=== PATIENT | male | born 1960 | race Caucasian/White ===

== ENCOUNTER 2021-12-19 15:40 | Inpatient (IN) | payer BC ==
[2021-12-19 16:06] LABS: #Basophils 0.1 thou/uL (0.0-0.2); #Eosinphils 0.2 thou/uL (0.0-0.7); #Lymphocytes 1.9 thou/uL (1.20-3.40); #Monocytes 0.8 thou/uL (0.11-0.59); #Neutrophils 7.5 thou/uL (1.40-6.50); %Basophils 0.5 % (0.0-1.0); %Eosinophils 1.9 % (0.0-10.0); %Lymphocytes 18.2 % (21.0-51.0); %Neutrophils 71.4 % (42.0-75.0); Hemoglobin 13.6 g/dL (14.0-18.0); Mean Corpuscular HGB CONC 32.8 g/dL (32.0-36.0); Mean Corpuscular Hemoglobin 31.4 pg (27.0-31.0); Mean Corpuscular Volume 95.6 fL (78.0-98.0); Mean Platelet Volume 7.8 fL (7.4-10.4); Platelet Count 262 thou/uL (130-400); RBC Distribution Width 11.5 % (11.5-14.5); Red Blood Cell (RBC) Count 4.33 mill/uL (4.70-6.10); White Blood Cell (WBC) Count 10.5 thou/uL (4.8-10.8)
[2021-12-19] MEDS ORDERED: Diltiazem HCl 0 ML ONE (16:12)
[2021-12-19 16:28] LABS: ALT (SGPT) 12 U/L (8-55); AST (SGOT) 14 U/L (5-34); Albumin 4.2 g/dL (3.4-4.8); Alkaline Phosphatase 49 U/L (40-110); Anion Gap 15 mmol/L (10-20); BUN (Urea Nitrogen) 14 mg/dL (8.4-25.7); Bilirubin, Total 0.4 mg/dL (0.2-1.2); Calc. Creatinine Clearance 0 mL/min (70-130); Carbon Dioxide 22 mmol/L (23-31); Chloride 108 mmol/L (98-107); Estimated GFR 73; Globulin 3.1 g/dL (2.4-3.5); Glucose 100 mg/dL (80-115); Potassium 3.5 mmol/L (3.5-5.1); Protein, Total 7.3 g/dL (5.8-8.1); Sodium 141 mmol/L (136-145)
[2021-12-19 16:50] LABS: PTT 36.3 sec (22.9-36.1); Prothrombin Time 13.6 sec (12.0-14.7)
[2021-12-19] MEDS ORDERED: Enoxaparin Sodium 60 MG/0.6 ML SYRINGE ONE (17:17)
[2021-12-19] MEDS ORDERED: Enoxaparin Sodium 100 MG/ML SYRINGE ONE ×2 (17:17→17:20)
[2021-12-19] MEDS ORDERED: Enoxaparin Sodium 40 MG/0.4 ML SYRINGE ONE (17:20)
[2021-12-19 17:28] LABS: Magnesium 1.8 mg/dL (1.6-2.6)
[2021-12-19] MEDS ORDERED: Ondansetron PF 4 MG/2 ML Vial IVP PRN (17:47)
[2021-12-19] MEDS ORDERED: Ondansetron ODT 4 MG TAB PO PRN (17:47)
[2021-12-19] MEDS ORDERED: Diltiazem 125 MG in Sodium Chloride 0.9% 100 ML IVPB SCH ×2 (18:00→20:07)
[2021-12-19 19:43] LABS: Troponin I Less than 0.010 ng/mL (< 0.028)
[2021-12-19 19:57] VITALS: BMI 45.0
[2021-12-19 22:25] LABS: Troponin I Less than 0.010 ng/mL (< 0.028)
[2021-12-20 05:31] LABS: #Basophils 0.1 thou/uL (0.0-0.2); #Eosinphils 0.1 thou/uL (0.0-0.7); #Lymphocytes 1.6 thou/uL (1.20-3.40); #Monocytes 0.6 thou/uL (0.11-0.59); #Neutrophils 5.9 thou/uL (1.40-6.50); %Basophils 0.7 % (0.0-1.0); %Eosinophils 1.7 % (0.0-10.0); %Lymphocytes 19.4 % (21.0-51.0); %Monocytes 7.5 % (0.0-10.0); %Neutrophils 70.7 % (42.0-75.0); Hemoglobin 12.7 g/dL (14.0-18.0); Mean Corpuscular HGB CONC 32.8 g/dL (32.0-36.0); Mean Corpuscular Hemoglobin 31.6 pg (27.0-31.0); Mean Corpuscular Volume 96.2 fL (78.0-98.0); Mean Platelet Volume 8.1 fL (7.4-10.4); Platelet Count 238 thou/uL (130-400); RBC Distribution Width 11.6 % (11.5-14.5); Red Blood Cell (RBC) Count 4.03 mill/uL (4.70-6.10); White Blood Cell (WBC) Count 8.4 thou/uL (4.8-10.8)
[2021-12-20 05:46] LABS: Anion Gap 13 mmol/L (10-20); BUN (Urea Nitrogen) 11 mg/dL (8.4-25.7); Calc. Creatinine Clearance 155 mL/min (70-130); Calcium 9.5 mg/dL (7.8-10.44); Carbon Dioxide 22 mmol/L (23-31); Chloride 108 mmol/L (98-107); Estimated GFR 87; Glucose 109 mg/dL (80-115); Potassium 3.3 mmol/L (3.5-5.1); Sodium 140 mmol/L (136-145)
[2021-12-20] MEDS ORDERED: Enoxaparin Sodium 40 MG/0.4 ML SYRINGE SC SCH (09:00)
[2021-12-20] MEDS: hydrALAZINE 20 MG/ML VIAL SLOW IVP PRN (16:55)
[2021-12-20] MEDS: FLUoxetine HCl 20 MG CAP PO SCH (20:11)
[2021-12-20] MEDS: Apixaban 5 MG TAB PO SCH (20:11)
[2021-12-20] MEDS: Acetaminophen 325 MG TAB PO PRN (21:47)
[2021-12-21] MEDS: hydrALAZINE 20 MG/ML VIAL SLOW IVP PRN ×2 (02:59→11:10)
[2021-12-21 04:52] LABS: #Eosinphils 0.1 thou/uL (0.0-0.7); #Lymphocytes 1.3 thou/uL (1.20-3.40); #Monocytes 0.7 thou/uL (0.11-0.59); #Neutrophils 7.6 thou/uL (1.40-6.50); %Basophils 0.2 % (0.0-1.0); %Eosinophils 0.8 % (0.0-10.0); %Lymphocytes 13.7 % (21.0-51.0); %Monocytes 6.9 % (0.0-10.0); %Neutrophils 78.3 % (42.0-75.0); Mean Corpuscular HGB CONC 33.1 g/dL (32.0-36.0); Mean Corpuscular Hemoglobin 31.7 pg (27.0-31.0); Mean Platelet Volume 7.8 fL (7.4-10.4); Platelet Count 253 thou/uL (130-400); RBC Distribution Width 11.4 % (11.5-14.5); Red Blood Cell (RBC) Count 4.09 mill/uL (4.70-6.10); White Blood Cell (WBC) Count 9.7 thou/uL (4.8-10.8)
[2021-12-21 05:20] LABS: Anion Gap 17 mmol/L (10-20); BUN (Urea Nitrogen) 10 mg/dL (8.4-25.7); Calc. Creatinine Clearance 169 mL/min (70-130); Calcium 9.7 mg/dL (7.8-10.44); Carbon Dioxide 19 mmol/L (23-31); Chloride 106 mmol/L (98-107); Estimated GFR 96; Glucose 120 mg/dL (80-115); Potassium 3.7 mmol/L (3.5-5.1); Sodium 138 mmol/L (136-145)
[2021-12-21] MEDS: FLUoxetine HCl 20 MG CAP PO SCH ×2 (11:09→20:50)
[2021-12-21] MEDS: Apixaban 5 MG TAB PO SCH ×2 (11:10→20:50)
[2021-12-21] MEDS ORDERED: PROPOFOL 200 MG/20 ML VIAL ONE (12:21)
[2021-12-21] MEDS ORDERED: Losartan 25 MG TAB PO SCH (17:00)
[2021-12-21] MEDS ORDERED: hydrOXYzine 25 MG TAB PO SCH (20:25)
[2021-12-21] MEDS ORDERED: Melatonin 3 MG TAB PO PRN (20:26)
[2021-12-21] MEDS: Acetaminophen 325 MG TAB PO PRN (20:50)
[2021-12-22 04:38] LABS: #Eosinphils 0.2 thou/uL (0.0-0.7); #Lymphocytes 1.2 thou/uL (1.20-3.40); #Monocytes 0.9 thou/uL (0.11-0.59); #Neutrophils 7.6 thou/uL (1.40-6.50); %Basophils 0.4 % (0.0-1.0); %Eosinophils 1.8 % (0.0-10.0); %Lymphocytes 12.4 % (21.0-51.0); %Neutrophils 76.5 % (42.0-75.0); Hemoglobin 13.6 g/dL (14.0-18.0); Mean Corpuscular HGB CONC 33.6 g/dL (32.0-36.0); Mean Corpuscular Hemoglobin 31.9 pg (27.0-31.0); Mean Corpuscular Volume 95.1 fL (78.0-98.0); Mean Platelet Volume 7.8 fL (7.4-10.4); Platelet Count 276 thou/uL (130-400); RBC Distribution Width 11.7 % (11.5-14.5); Red Blood Cell (RBC) Count 4.27 mill/uL (4.70-6.10); White Blood Cell (WBC) Count 9.9 thou/uL (4.8-10.8)
[2021-12-22 04:58] LABS: Anion Gap 18 mmol/L (10-20); BUN (Urea Nitrogen) 10 mg/dL (8.4-25.7); Calc. Creatinine Clearance 166 mL/min (70-130); Calcium 10.2 mg/dL (7.8-10.44); Carbon Dioxide 18 mmol/L (23-31); Chloride 106 mmol/L (98-107); Estimated GFR 93; Glucose 124 mg/dL (80-115); Potassium 3.2 mmol/L (3.5-5.1); Sodium 139 mmol/L (136-145)
[2021-12-22] MEDS ORDERED: Losartan 25 MG TAB PO SCH (09:00)
[2021-12-22] MEDS: Apixaban 5 MG TAB PO SCH ×2 (10:13→21:14)
[2021-12-22] MEDS: AZILSARTAN 80 MG PO SCH (10:14)
[2021-12-22] MEDS: FLUoxetine HCl 20 MG CAP PO SCH ×2 (10:15→21:14)
[2021-12-22] MEDS ORDERED: Potassium Chloride 20 MEQ TAB PO SCH (10:15)
[2021-12-22] MEDS: hydrALAZINE 20 MG/ML VIAL SLOW IVP PRN (18:08)
[2021-12-22] MEDS: Acetaminophen 325 MG TAB PO PRN (18:10)
[2021-12-22] MEDS ORDERED: hydrOXYzine 25 MG TAB PO SCH (22:00)
[2021-12-23 04:54] LABS: #Eosinphils 0.3 thou/uL (0.0-0.7); #Lymphocytes 2.2 thou/uL (1.20-3.40); #Monocytes 1.3 thou/uL (0.11-0.59); #Neutrophils 8.1 thou/uL (1.40-6.50); %Basophils 0.4 % (0.0-1.0); %Eosinophils 2.2 % (0.0-10.0); %Lymphocytes 18.2 % (21.0-51.0); %Monocytes 11.1 % (0.0-10.0); %Neutrophils 68.1 % (42.0-75.0); Hemoglobin 14.1 g/dL (14.0-18.0); Mean Corpuscular HGB CONC 33.5 g/dL (32.0-36.0); Mean Corpuscular Hemoglobin 32.4 pg (27.0-31.0); Mean Corpuscular Volume 96.5 fL (78.0-98.0); Mean Platelet Volume 7.9 fL (7.4-10.4); Platelet Count 309 thou/uL (130-400); RBC Distribution Width 11.6 % (11.5-14.5); Red Blood Cell (RBC) Count 4.37 mill/uL (4.70-6.10)
[2021-12-23 05:11] LABS: Anion Gap 14 mmol/L (10-20); BUN (Urea Nitrogen) 10 mg/dL (8.4-25.7); Calc. Creatinine Clearance 162 mL/min (70-130); Calcium 10.3 mg/dL (7.8-10.44); Carbon Dioxide 20 mmol/L (23-31); Chloride 107 mmol/L (98-107); Estimated GFR 91; Glucose 130 mg/dL (80-115); Potassium 3.4 mmol/L (3.5-5.1); Sodium 138 mmol/L (136-145)
[2021-12-23] MEDS: Amlodipine 5 MG TAB PO SCH (08:56)
[2021-12-23] MEDS: AZILSARTAN 80 MG PO SCH (08:57)
[2021-12-23] MEDS: FLUoxetine HCl 20 MG CAP PO SCH ×2 (08:57→20:58)
[2021-12-23] MEDS: Apixaban 5 MG TAB PO SCH ×2 (08:57→20:58)
[2021-12-23] MEDS ORDERED: AZILSARTAN 80 MG PO SCH (09:00)
[2021-12-23] MEDS ORDERED: Losartan 25 MG TAB PO SCH (14:45)
[2021-12-23] MEDS ORDERED: Labetalol HCl 100 MG/20 ML VIAL SLOW IVP PRN (16:00)
[2021-12-23] MEDS: Acetaminophen 325 MG TAB PO PRN (23:00)
[2021-12-24 05:01] LABS: #Basophils 0.1 thou/uL (0.0-0.2); #Eosinphils 0.2 thou/uL (0.0-0.7); #Lymphocytes 1.6 thou/uL (1.20-3.40); #Monocytes 1.3 thou/uL (0.11-0.59); #Neutrophils 7.7 thou/uL (1.40-6.50); %Basophils 0.5 % (0.0-1.0); %Lymphocytes 14.7 % (21.0-51.0); %Monocytes 12.2 % (0.0-10.0); %Neutrophils 70.6 % (42.0-75.0); Hemoglobin 12.9 g/dL (14.0-18.0); Mean Corpuscular HGB CONC 32.6 g/dL (32.0-36.0); Mean Corpuscular Hemoglobin 31.1 pg (27.0-31.0); Mean Corpuscular Volume 95.5 fL (78.0-98.0); Mean Platelet Volume 7.8 fL (7.4-10.4); Platelet Count 267 thou/uL (130-400); RBC Distribution Width 11.7 % (11.5-14.5); Red Blood Cell (RBC) Count 4.16 mill/uL (4.70-6.10); White Blood Cell (WBC) Count 10.9 thou/uL (4.8-10.8)
[2021-12-24 05:22] LABS: Anion Gap 13 mmol/L (10-20); BUN (Urea Nitrogen) 10 mg/dL (8.4-25.7); Calc. Creatinine Clearance 171 mL/min (70-130); Calcium 9.7 mg/dL (7.8-10.44); Carbon Dioxide 22 mmol/L (23-31); Chloride 108 mmol/L (98-107); Estimated GFR 96; Glucose 128 mg/dL (80-115); Potassium 3.2 mmol/L (3.5-5.1); Sodium 140 mmol/L (136-145)
[2021-12-24] MEDS ORDERED: Amiodarone 450 MG in Dextrose 5% in Water 250 ML IVPB SCH (08:30)
[2021-12-24] MEDS ORDERED: Amiodarone 150 MG in Dextrose 5% in Water 100 ML IVPB SCH (09:00)
[2021-12-24] MEDS ORDERED: Losartan 25 MG TAB PO SCH (09:00)
[2021-12-24] MEDS: FLUoxetine HCl 20 MG CAP PO SCH ×2 (09:22→20:00)
[2021-12-24] MEDS: Amlodipine 5 MG TAB PO SCH (09:22)
[2021-12-24] MEDS: Apixaban 5 MG TAB PO SCH ×2 (09:23→20:00)
[2021-12-24] MEDS: AZILSARTAN 80 MG PO SCH (09:27)
[2021-12-24 10:37] LABS: ALT (SGPT) 10 U/L (8-55); AST (SGOT) 11 U/L (5-34); Albumin 3.8 g/dL (3.4-4.8); Alkaline Phosphatase 55 U/L (40-110); Bilirubin, Direct 0.5 mg/dL (0.1-0.3); Magnesium 1.6 mg/dL (1.6-2.6); Protein, Total 6.7 g/dL (5.8-8.1)
[2021-12-24] MEDS ORDERED: Potassium Chloride 20 MEQ TAB PO SCH (14:45)
[2021-12-25] MEDS: Acetaminophen 325 MG TAB PO PRN (01:42)
[2021-12-25] MEDS: FLUoxetine HCl 20 MG CAP PO SCH ×2 (08:46→20:35)
[2021-12-25] MEDS: Hydrochlorothiazide 25 MG TAB PO SCH (08:46)
[2021-12-25] MEDS: Metoprolol Tartrate 25 MG TAB PO SCH ×2 (08:47→20:35)
[2021-12-25] MEDS: Amlodipine 5 MG TAB PO SCH (08:47)
[2021-12-25] MEDS: Apixaban 5 MG TAB PO SCH ×2 (08:47→20:35)
[2021-12-25] MEDS: AZILSARTAN 80 MG PO SCH (08:53)
[2021-12-25 09:55] LABS: Anion Gap 14 mmol/L (10-20); BUN (Urea Nitrogen) 9 mg/dL (8.4-25.7); Calc. Creatinine Clearance 186 mL/min (70-130); Calcium 10.1 mg/dL (7.8-10.44); Carbon Dioxide 21 mmol/L (23-31); Chloride 105 mmol/L (98-107); Estimated GFR 99; Glucose 132 mg/dL (80-115); Potassium 3.1 mmol/L (3.5-5.1); Sodium 137 mmol/L (136-145)
[2021-12-25] MEDS ORDERED: Amiodarone 200 MG TAB PO SCH ×2 (15:00)
[2021-12-25] MEDS ORDERED: Potassium Chloride 20 MEQ TAB PO SCH (18:00)
[2021-12-26 03:24] VITALS: TEMP 97.5
[2021-12-26 05:25] LABS: Anion Gap 15 mmol/L (10-20); BUN (Urea Nitrogen) 13 mg/dL (8.4-25.7); Calc. Creatinine Clearance 175 mL/min (70-130); Calcium 9.8 mg/dL (7.8-10.44); Carbon Dioxide 20 mmol/L (23-31); Chloride 104 mmol/L (98-107); Estimated GFR 97; Glucose 133 mg/dL (80-115); Potassium 3.3 mmol/L (3.5-5.1); Sodium 136 mmol/L (136-145)
[2021-12-26] MEDS: Metoprolol Tartrate 25 MG TAB PO SCH (07:43)
[2021-12-26] MEDS: Apixaban 5 MG TAB PO SCH (07:43)
[2021-12-26] MEDS: FLUoxetine HCl 20 MG CAP PO SCH (07:43)
[2021-12-26] MEDS: Hydrochlorothiazide 25 MG TAB PO SCH (07:43)
[2021-12-26] MEDS: AZILSARTAN 80 MG PO SCH (07:47)
[2021-12-26] MEDS ORDERED: Enoxaparin Sodium 40 MG/0.4 ML SYRINGE SC SCH (09:00)
[2021-12-26] MEDS ORDERED: Potassium Chloride 20 MEQ TAB PO SCH (11:00)
[2021-12-26 12:36] VITALS: BP 160/99
== END 2021-12-26 13:39 | disposition home or self-care (01) | DRG 308 ==
LOC: ERS 15:40 → 2SW 17:49 → OBSVTOIN 17:49
PROVIDERS: ADMIT Internal Medicine; ATTEND Internal Medicine
PROC: B24BZZ4 Ultrasonography of Heart with Aorta, Transesophageal (ICD-10-PCS; principal; 2021-12-21)
PROC: 5A2204Z Restoration of Cardiac Rhythm, Single (ICD-10-PCS; 2021-12-21)
DX: I48.19 Other persistent atrial fibrillation (principal); J96.01 Acute respiratory failure with hypoxia; E66.2 Morbid (severe) obesity with alveolar hypoventilation; Z68.42 Body mass index [BMI] 45.0-49.9, adult; Z20.822 Contact with and (suspected) exposure to COVID-19; Z23 Encounter for immunization; E87.6 Hypokalemia; F31.9 Bipolar disorder, unspecified; I11.9 Hypertensive heart disease without heart failure; Z79.899 Other long term (current) drug therapy; Z98.52 Vasectomy status; Z90.09 Acquired absence of other part of head and neck; Z86.16 Personal history of COVID-19
CPT/HCPCS: 36415; 71045; 80048; 80053; 83605; 83735; 83880; 84443; 84484; 85025; 85610; 85730; 90471; 90732; 92960; 93005; 93010; 93306; 93312; 96372; 96374; G0009; J0282; J0360; J1650; J2704; J7070; U0003; U0005

== ENCOUNTER 2022-04-12 08:32 | Outpatient (CLI) | payer BC ==
[2022-04-12 10:17] LABS: Hemoglobin 14.1 g/dL (13.5-17.5); Mean Corpuscular HGB CONC 35.1 g/dL (32.0-36.0); Mean Corpuscular Hemoglobin 30.9 pg (27.0-33.0); Mean Corpuscular Volume 88.2 fl (81.2-95.1); Platelet Count 291 10x3/uL (150-450); RBC Distribution Width 14.8 % (11.5-14.5); Red Blood Cell (RBC) Count 4.56 10x6/uL (4.32-5.72); White Blood Cell (WBC) Count 9.1 10x3/uL (3.5-10.5)
[2022-04-12 10:37] LABS: PTT 31.2 sec (22.0-33.0); Prothrombin Time 10.9 sec (9.5-12.1)
[2022-04-12 10:40] LABS: ALT (SGPT) 12 U/L (8-55); AST (SGOT) 13 U/L (5-34); Albumin 4.1 g/dL (3.4-4.8); Alkaline Phosphatase 57 U/L (40-110); Anion Gap 14 mmol/L (10-20); BUN (Urea Nitrogen) 21 mg/dL (8.4-25.7); Bilirubin, Direct 0.2 mg/dL (0.1-0.3); Bilirubin, Total 0.4 mg/dL (0.2-1.2); Calc. Creatinine Clearance 0 mL/min (70-130); Calcium 9.8 mg/dL (7.8-10.44); Carbon Dioxide 24 mmol/L (23-31); Chloride 104 mmol/L (98-107); Estimated GFR 76; Glucose 100 mg/dL (80-115); Potassium 4.3 mmol/L (3.5-5.1); Protein, Total 6.7 g/dL (5.8-8.1); Sodium 138 mmol/L (136-145)
== END 2022-04-12 08:33 | disposition home or self-care (01) ==
LOC: LABBT 08:32
PROVIDERS: ATTEND Internal Medicine Cardiovascular Disease
DX: Z01.818 Encounter for other preprocedural examination (principal); Z51.81 Encounter for therapeutic drug level monitoring; I48.0 Paroxysmal atrial fibrillation; I51.9 Heart disease, unspecified; K76.9 Liver disease, unspecified; Z79.01 Long term (current) use of anticoagulants
CPT/HCPCS: 71046; 80048; 80076; 85027; 85610; 85730; 93005; 93010

== ENCOUNTER 2022-04-15 08:19 | Day surgery (SDC) | payer BC ==
[2022-04-12 15:56] VITALS: BMI 41.5
[2022-04-15] MEDS ORDERED: Heparin 25,000 units/D5W 500 ML ONE (09:55)
[2022-04-15] MEDS ORDERED: Heparin 10,000 UNITS/ 10 ML VIAL ONE ×2 (09:55→16:22)
[2022-04-15] MEDS ORDERED: Protamine Sulfate 50 MG/5 ML VIAL ONE (09:55)
[2022-04-15] MEDS ORDERED: Isoproterenol 0.2 MG/1 ML AMP ONE (09:56)
[2022-04-15] MEDS ORDERED: PROPOFOL 200 MG/20 ML VIAL ONE (13:21)
[2022-04-15] MEDS ORDERED: Rocuronium Bromide 10 MG/ML (10ML VIAL) ONE (13:21)
[2022-04-15] MEDS ORDERED: Metoprolol Tartrate 5 MG/5 ML VIAL ONE (13:21)
[2022-04-15] MEDS ORDERED: Ondansetron PF 4 MG/2 ML Vial ONE (13:21)
[2022-04-15] MEDS ORDERED: Phenylephrine 10 MG/ML VIAL ONE (13:21)
[2022-04-15] MEDS ORDERED: FENTANYL 50 MCG/ML 1 ML VIAL ONE ×3 (13:22→16:29)
[2022-04-15] MEDS ORDERED: PHENYLEPHRINE-NS 100 MCG/ML 10 ML SYRINGE ONE (15:13)
[2022-04-15] MEDS ORDERED: SUGAMMADEX SODIUM 200 MG/2 ML VIAL ONE (16:29)
[2022-04-15] MEDS ORDERED: Furosemide 40 MG/4 ML VIAL ONE (16:29)
[2022-04-15] MEDS ORDERED: Ondansetron HCl/PF 4 MG/2 ML Vial IVP PRN (16:54)
[2022-04-15] MEDS ORDERED: Promethazine HCl 25 MG/ML VIAL IVPB PRN (16:54)
[2022-04-15] MEDS ORDERED: Promethazine HCl 25 MG/ML VIAL IM PRN (16:54)
[2022-04-15] MEDS ORDERED: Sucralfate 1 GM TAB ONE (17:47)
[2022-04-15] MEDS ORDERED: Sucralfate 1 GM TAB PO SCH ×2 (18:00)
== END 2022-04-15 21:10 | disposition home or self-care (01) ==
LOC: SDC 08:19
PROVIDERS: ATTEND Internal Medicine Cardiovascular Disease
PROC: B244ZZ3 Ultrasonography of Right Heart, Intravascular (ICD-10-PCS; principal; 2022-04-15)
PROC: 4A023FZ Measurement of Cardiac Rhythm, Percutaneous Approach (ICD-10-PCS; principal; 2022-04-15)
PROC: 02583ZZ Destruction of Conduction Mechanism, Percutaneous Approach (ICD-10-PCS; principal; 2022-04-15)
PROC: 02K83ZZ Map Conduction Mechanism, Percutaneous Approach (ICD-10-PCS; principal; 2022-04-15)
PROC: 4A0234Z Measurement of Cardiac Electrical Activity, Percutaneous Approach (ICD-10-PCS; principal; 2022-04-15)
DX: I48.0 Paroxysmal atrial fibrillation (principal); I48.4 Atypical atrial flutter; I11.9 Hypertensive heart disease without heart failure; G47.30 Sleep apnea, unspecified; E66.9 Obesity, unspecified; Z68.41 Body mass index [BMI] 40.0-44.9, adult; Z86.16 Personal history of COVID-19; Z79.01 Long term (current) use of anticoagulants; Z79.899 Other long term (current) drug therapy
CPT/HCPCS: 85347; 93005; 93623; 93656; C1732; C1760; C1769; C1894; J1644; J1940; J2370; J2405; J2704; J2720; J3010

== ENCOUNTER 2022-05-14 19:00 | Outpatient (CLI) | payer BC | END 2022-05-14 19:01 | disposition home or self-care (01) | LOC: SLEEPLAB 19:00 | PROVIDERS: ATTEND Family Medicine | DX: G47.33 Obstructive sleep apnea (adult) (pediatric) (principal); R53.83 Other fatigue; J44.9 Chronic obstructive pulmonary disease, unspecified; I51.89 Other ill-defined heart diseases; G47.10 Hypersomnia, unspecified; E66.9 Obesity, unspecified; Z68.41 Body mass index [BMI] 40.0-44.9, adult | CPT/HCPCS: 95811 ==

== ENCOUNTER → 2022-09-13 | Day surgery (SDC) | payer BC ==
[2022-09-12 08:03] VITALS: BMI 40.1
[2022-09-12 08:34] LABS: Hemoglobin 13.3 g/dL (13.5-17.5); Mean Corpuscular HGB CONC 34.1 g/dL (32.0-36.0); Mean Corpuscular Hemoglobin 31.1 pg (27.0-33.0); Mean Corpuscular Volume 91.1 fl (81.2-95.1); Mean Platelet Volume 10.1 fl (7.4-10.4); Platelet Count 302 10x3/uL (150-450); RBC Distribution Width 12.5 % (11.5-14.5); Red Blood Cell (RBC) Count 4.28 10x6/uL (4.32-5.72); White Blood Cell (WBC) Count 9.8 10x3/uL (3.5-10.5)
[2022-09-12 08:59] LABS: Anion Gap 16 mmol/L (10-20); BUN (Urea Nitrogen) 27 mg/dL (8.4-25.7); Calc. Creatinine Clearance 106 mL/min (70-130); Calcium 9.9 mg/dL (7.8-10.44); Carbon Dioxide 22 mmol/L (23-31); Chloride 103 mmol/L (98-107); Estimated GFR 64; Glucose 114 mg/dL (80-115); Potassium 4.1 mmol/L (3.5-5.1); Sodium 137 mmol/L (136-145)
[2022-09-12 09:24] LABS: PTT 32.2 sec (22.0-33.0); Prothrombin Time 10.6 sec (9.5-12.1)
[~2022-09-13] MED LIST: Lidocaine 1% PF 5 ML VIAL ONE; PROPOFOL 200 MG/20 ML VIAL ONE
== END | disposition home or self-care (01) ==
LOC: SDC 10:20
PROVIDERS: ATTEND Internal Medicine Cardiovascular Disease
PROC: 5A2204Z Restoration of Cardiac Rhythm, Single (ICD-10-PCS; principal; 2022-09-13)
DX: I48.19 Other persistent atrial fibrillation (principal); I48.4 Atypical atrial flutter; I10 Essential (primary) hypertension; G47.30 Sleep apnea, unspecified; I45.10 Unspecified right bundle-branch block; Z86.16 Personal history of COVID-19; Z79.01 Long term (current) use of anticoagulants; Z79.899 Other long term (current) drug therapy
CPT/HCPCS: 80048; 85027; 85610; 85730; 92960; 93005; 93010; J2704

== ENCOUNTER 2023-10-22 06:40 | Day surgery (SDC) | payer BC ==
[2023-10-20 11:54] VITALS: BMI 40.1
[2023-10-20 12:51] LABS: Hemoglobin 15.7 g/dL (13.5-17.5); Mean Corpuscular HGB CONC 35.7 g/dL (32.0-36.0); Mean Corpuscular Hemoglobin 32.9 pg (27.0-33.0); Mean Corpuscular Volume 92.2 fL (81.2-95.1); Mean Platelet Volume 10.4 fL (7.4-10.4); Platelet Count 256 10x3/uL (150-450); Red Blood Cell (RBC) Count 4.77 10x6/uL (4.32-5.72); White Blood Cell (WBC) Count 9.8 10x3/uL (3.5-10.5)
[2023-10-20 13:01] LABS: PTT 29.3 sec (22.0-33.0); Prothrombin Time 11.2 sec (9.5-12.1)
[2023-10-20 13:08] LABS: Anion Gap 14 mmol/L (10-20); BUN (Urea Nitrogen) 17 mg/dL (8.4-25.7); Calc. Creatinine Clearance 122 mL/min (70-130); Carbon Dioxide 24 mmol/L (23-31); Chloride 103 mmol/L (98-107); Estimated GFR 76; Glucose 176 mg/dL (80-115); Potassium 3.9 mmol/L (3.5-5.1); Sodium 137 mmol/L (136-145)
[2023-10-22] MEDS ORDERED: Isoproterenol 0.2 MG/1 ML AMP ONE (06:50)
[2023-10-22] MEDS ORDERED: Heparin 10,000 UNITS/ 10 ML VIAL ONE (06:50)
[2023-10-22] MEDS ORDERED: Heparin 25,000 units/D5W 500 ML ONE (06:50)
[2023-10-22] MEDS ORDERED: Protamine Sulfate 50 MG/5 ML VIAL ONE (06:50)
[2023-10-22] MEDS ORDERED: PROPOFOL 20 ML ONE (08:40)
[2023-10-22] MEDS ORDERED: SUCCINYLCHOLINE/SOD CL,ISO/PF 200 MG/10 ML SYRINGE FS ONE (08:40)
[2023-10-22] MEDS ORDERED: fentaNYL 50 mcg/mL 1 mL Vial ONE ×2 (08:40→11:36)
[2023-10-22] MEDS ORDERED: Midazolam HCl 2 mg/2 ml Vial ONE (08:40)
[2023-10-22] MEDS ORDERED: Lidocaine 1% PF 5 ML VIAL ONE (08:41)
[2023-10-22] MEDS ORDERED: Esmolol 100 MG/10 ML VIAL ONE (08:46)
[2023-10-22] MEDS ORDERED: Propofol 1,000 MG/100 ML VIAL IV ONE (08:53)
[2023-10-22] MEDS ORDERED: PHENYLEPHRINE-NS 100 MCG/ML 10 ML SYRINGE ONE ×2 (09:05→12:55)
[2023-10-22] MEDS ORDERED: Dexamethasone 20 MG/5 ML VIAL ONE (09:06)
[2023-10-22] MEDS ORDERED: Ondansetron PF 4 MG/2 ML Vial ONE (09:06)
[2023-10-22] MEDS ORDERED: Phenylephrine 10 MG/ML VIAL ONE (12:55)
[2023-10-22] MEDS ORDERED: Sodium Chloride 0.9% 250 ML 250 ML ONE (12:55)
== END 2023-10-22 16:20 | disposition home or self-care (01) ==
LOC: SDC 06:40
PROVIDERS: ATTEND Internal Medicine Cardiovascular Disease
PROC: 4A027FZ Measurement of Cardiac Rhythm, Via Natural or Artificial Opening (ICD-10-PCS; principal; 2023-10-22)
PROC: 02583ZZ Destruction of Conduction Mechanism, Percutaneous Approach (ICD-10-PCS; principal; 2023-10-22)
PROC: 4A0274Z Measurement of Cardiac Electrical Activity, Via Natural or Artificial Opening (ICD-10-PCS; principal; 2023-10-22)
DX: I48.0 Paroxysmal atrial fibrillation (principal); I48.19 Other persistent atrial fibrillation; E66.01 Morbid (severe) obesity due to excess calories; I10 Essential (primary) hypertension; Z98.890 Other specified postprocedural states; Z79.01 Long term (current) use of anticoagulants; Z68.41 Body mass index [BMI] 40.0-44.9, adult
CPT/HCPCS: 80048; 85027; 85347; 85610; 85730; 93005; 93622; 93623; 93655; 93656; C1732; C1759; C1760; C1884; C1893; C1894; J1100; J1644; J2250; J2371; J2405; J2704; J2720; J3010; J7050

== ENCOUNTER 2024-05-25 13:30 | Emergency (ER) | payer BC ==
[2024-05-25] MEDS ORDERED: Bacitracin 1 PK ONE (15:03)
== END 2024-05-25 15:26 | disposition home or self-care (01) ==
LOC: ERS 13:30
DX: T23.212A Burn of second degree of left thumb (nail), initial encounter (principal); I10 Essential (primary) hypertension; T52.0X1A Toxic effect of petroleum products, accidental (unintentional), initial encounter
CPT/HCPCS: 71046; 93005